=== PATIENT | female | born 1955 | race Caucasian/White ===

== ENCOUNTER → 2023-04-19 | Outpatient (CLI) | payer MEDICARE, BC ==
--- NOTE | 2023-04-22 11:27 | MM ---
EXAM: MG 3D screening mammo w/cad DATE OF EXAM: 04/19/2023 10:36 AM COMPARISON STUDIES: 11/28/2018 Bilateral MG 3D screening mammo w/cad, [facility]. 10/02/2021 Bilateral MG 3D screening mammo w/cad, [facility]. PATIENT HISTORY: Female, 67 years old with history of Z12.31 SCREENING MAMMOGRAM; , Menarche at age 12. First Full-Term at age 19. Postmenopausal. Mother had breast cancer at or over age 50. , RISK CALCULATION: Marizol 5 year model risk: 3.4%. NCI Lifetime model risk: 12.0%. TISSUE DENSITY: Scattered fibroglandular densities FINDINGS: There is no suspicious group of microcalcifications or new suspicious mass in either breast. ASSESSMENT: 1 - Negative RECOMMENDATION: 1. Screening Mammogram Bilateral in 1 Year . COMMENTS: [facility] will attempt to contact patient to return for supplemental views and ultrasound if indicated. Patient should continue monthly self-breast exams. A clinical breast exam by your physician is recommended on an annual basis. This exam should not preclude additional follow-up of suspicious palpable abnormalities. Note on Marizol scores and lifetime risk: 1. A Marizol score greater than 3% is considered moderate risk. If this is the case, consider specialist referral to assess eligibility for a risk reducing agent. 2. If overall lifetime risk for the development of breast cancer is 20% or higher, the patient may qualify for future screening with alternating mammogram and breast MRI. CRUZITO
== END | disposition home or self-care (01) ==
LOC: RADMAMWWP 07:59
PROVIDERS: ATTEND Family Medicine
DX: Z12.31 Encounter for screening mammogram for malignant neoplasm of breast (principal); Z78.0 Asymptomatic menopausal state; Z80.3 Family history of malignant neoplasm of breast
CPT/HCPCS: 77063; 77067

== ENCOUNTER → 2023-04-19 | Outpatient (CLI) | payer MEDICARE, BC ==
--- NOTE | 2023-04-19 12:14 | CTL ---
EXAMINATION TYPE: CT Low Dose Lung DATE OF EXAM ORDERED: 04/19/2023 HISTORY: 67-year-old female with Z87.891, nicotine dependence, current smoker with 50 pack-year histo ry. Lung cancer screening CT DLP: 50.[address] CTDI: 1.4 mGy Automated exposure control for dose reduction was used. SCREENING VISIT: Baseline COMPARISON: Radiograph 03/14/2023 TECHNIQUE: Low dose computed tomography scan was performed through the chest with coronal and sagitta l reconstructions. CT DIAGNOSTIC QUALITY: Satisfactory FINDINGS: The heart is normal size without pericardial effusion. Aorta normal caliber with conventional arch vessel branching anatomy. No thoracic lymphadenopathy by CT size criteria. Multiple moderate emphysematous change. Biapical pleural-parenchymal scarring. Subpleural nodularity measuring 1.5 cm medial right suprahilar region, axial image 97. 3 mm pulmonary nodule anterolateral right midlung, axial image 164. No consolidation or pleural effusion. Visualized upper abdomen shows no gross abnormality. Bones: No osseous destructive process. IMPRESSION: 1. LungRADS Category 4B (very suspicious, >15% chance of malignancy). A 1.5 cm subpleural nodule med ial right suprahilar region on baseline screening. 2. COPD with [id number] emphysema. Recommend smoking cessation. CT LUNG RAD AND CT CHEST RECOMMENDATION: Lung-Rad 4B or 4X Very Suspicious: Follow-up Chest CT with o r without contrast or PET/CT and/or tissue sampling. PET/CT may be used when there is a > 8 mm solid component. S Modifier (other clinically significant findings): None
== END | disposition home or self-care (01) ==
LOC: RADCTMAIN 08:30
PROVIDERS: ATTEND Internal Medicine
DX: Z12.2 Encounter for screening for malignant neoplasm of respiratory organs (principal); J43.9 Emphysema, unspecified; R91.1 Solitary pulmonary nodule; F17.210 Nicotine dependence, cigarettes, uncomplicated
CPT/HCPCS: 71271

== ENCOUNTER → 2023-06-12 | Outpatient (CLI) | payer MEDICARE, BC ==
--- NOTE | 2023-06-13 21:27 | CT ---
EXAMINATION TYPE: CT chest wo con DATE OF EXAM: 06/12/2023 COMPARISON: 04/19/2023 HISTORY: 68-year-old female ION chest. Spot on lung Hx COPD TECHNIQUE: Contiguous axial scanning of the chest without IV contrast. Imaging for ion robot planning purposes. Coronal/sagittal reconstructions performed. CT DLP: 194.20mGycm. Automatic exposure control utilized for a dose reduction. FINDINGS: Heart normal size without pericardial effusion. Aorta normal caliber with conventional arch vessel branching anatomy. Scattered nonenlarged mediastinal lymph nodes. No thoracic lymphadenopathy by CT size criteria. Moderate scattered centrilobular emphysema. Focal subpleural opacity is redemonstrated medial right u pper lobe near the right suprahilar region measuring 1.8 x 1.3 cm versus 1.6 x 1.2 cm on 04/19/2023. E xtends to the medial subsegmental branch of the right upper lobe. No consolidation or pleural effusion. Visualized upper abdomen shows no gross abnormality. Bones: Mild degenerative disc disease midthoracic spine. IMPRESSION: 1. COPD with moderate emphysema. 2. Redemonstrated subpleural medial right upper lobe nodule/opacity near the suprahilar region measur ing 1.8 x 1.3 cm versus 1.6 x 1.2 cm on 04/19/2023. Imaging for robotic bronchoscopy procedure.
== END | disposition home or self-care (01) ==
LOC: RADCTMAIN 11:56
PROVIDERS: ATTEND Internal Medicine
DX: J43.2 Centrilobular emphysema (principal)
CPT/HCPCS: 71250

== ENCOUNTER → 2023-10-07 | Outpatient (CLI) | payer MEDICARE, BC ==
[2023-10-07 11:54] LABS: African American GFR (CKD) 88 (>60 ml/min/1.73 sqM); Blood Urea Nitrogen 16 mg/dL (7-17); Non-African American GFR(CKD) 76 (>60 ml/min/1.73 sqM)
--- NOTE | 2023-10-10 20:05 | CT ---
EXAMINATION TYPE: CT chest w con DATE OF EXAM: 10/07/2023 COMPARISON: 06/12/2023 HISTORY: SOLITARY PULMONARY NODULE. CT DLP: 136.90 mGycm, Automated exposure control for dose reduction was used. CONTRAST: Performed injected with 100ml mL of Isovue 300. TECHNIQUE: Axial images were obtained at 5 mm thick sections. Reconstructed images are reviewed on [employer] computer in the coronal plane. FINDINGS: Portion of the thyroid visualized is normal. There is a stable appearing 1.9 x 1.3 cm density in the posterior medial right apex. Series 4 image 2 1. This was present previously and is stable in size from the most recent comparison of June 12 023. Emphysematous changes are present within the upper lung barton. No enlarged mediastinal or hilar adenopathy is evident. Small pretracheal lymph node is anterior to the marcelo The ascending aorta diameter at the level of the main pulmonary artery is 2.9 cm. The ma in pulmonary artery diameter at the bifurcation is 2.[address] sections are obtained through the upper abdomen. Abdomen is essentially unremarkable. IMPRESSION: 1. Stable appearing pleural-based mass medial right mediastinal border.
== END | disposition home or self-care (01) ==
LOC: RADCTMAIN 11:12
PROVIDERS: ATTEND Internal Medicine
DX: J94.8 Other specified pleural conditions (principal); R91.1 Solitary pulmonary nodule
CPT/HCPCS: 82565; 84520; 71260; 36415; Q9967

== ENCOUNTER → 2024-02-10 | Outpatient (CLI) | payer MEDICARE, BC ==
[2024-02-10 11:03] LABS: African American GFR (CKD) >90 (>60 ml/min/1.73 sqM); Blood Urea Nitrogen 15 mg/dL (7-17); Non-African American GFR(CKD) 78 (>60 ml/min/1.73 sqM)
--- NOTE | 2024-02-10 11:58 | CT ---
EXAMINATION TYPE: CT chest w con DATE OF EXAM: 02/10/2024 COMPARISON: 10/07/2023 HISTORY: lesion on lung CT DLP: 347 mGycm Automated exposure control for dose reduction was used. CONTRAST: CT scan of the chest is performed with IV Contrast, patient injected with 100 mL of Isovue 300. FINDINGS: LUNGS: There is chronic nodular pleural parenchymal density right upper lobe medially smaller than on prior examination measuring 1.3 cm cyst is 1.9 cm maximal dimension. Central air noted. The lungs ar e otherwise clear. Continued follow-up in 6 months advised. MEDIASTINUM: There are no greater than 1 cm hilar or mediastinal lymph nodes. No pericardial effusi on is seen. Thoracic aorta is of normal caliber. The heart is not enlarged. UPPER ABDOMEN: No significant abnormality appreciated. OTHER: No additional significant abnormality is seen. IMPRESSION: There is chronic nodular pleural parenchymal density right upper lobe medially smaller than on prior examination measuring 1.3 cm cyst is 1.9 cm maximal dimension. Central air noted. Six-month follow-up recommended.
== END | disposition home or self-care (01) ==
LOC: RADCTMAIN 10:33
PROVIDERS: ATTEND Internal Medicine
DX: R91.8 Other nonspecific abnormal finding of lung field (principal)
CPT/HCPCS: 82565; 84520; 71260; 36415; Q9967

== ENCOUNTER → 2024-05-01 | Outpatient (CLI) | payer MEDICARE, BC ==
--- NOTE | 2024-05-03 11:39 | MM ---
Reason for Exam: Screening (asymptomatic). Last mammogram was performed 1 year(s) and 1 month(s) ago. Patient History: Menarche at age 12. First Full-Term at age 19. Postmenopausal. Mother had breast cancer at or over age 50. Risk Values: Marizol 5 year model risk: 3.5%. NCI Lifetime model risk: 11.5%. Prior Study Comparison: 11/28/2018 Bilateral MG 3D screening mammo w/cad, [facility]. 10/02/2021 Bilateral MG 3D screening mammo w/cad, [facility]. 04/19/2023 Bilateral MG 3D screening mammo w/cad, [facility]. Tissue Density: There are scattered areas of fibroglandular density. Findings: Analyzed By CAD. Right breast: There is no suspicious group of microcalcifications or new suspicious mass. Left breast: There is no suspicious group of microcalcifications or new suspicious mass. Overall Assessment: Negative, BI-RAD 1 Management: Screening Mammogram of both breasts in [address] [facility] will attempt to contact patient to return for supplemental views and ultrasound if indicated. Patient should continue monthly self-breast exams. A clinical breast exam by your physician is recommended on an annual basis. This exam should not preclude additional follow-up of suspicious palpable abnormalities. Note on Marizol scores and lifetime risk: 1. A Marizol score greater than 3% is considered moderate risk. If this is the case, consider specialist referral to assess eligibility for a risk reducing agent. 2. If overall lifetime risk for the development of breast cancer is 20% or higher, the patient may qualify for future screening with alternating mammogram and breast MRI. Electronically signed and approved by: Kendrick Ortiz DO
== END | disposition home or self-care (01) ==
LOC: RADMAMWWP 13:05
PROVIDERS: ATTEND Family Medicine
DX: Z12.31 Encounter for screening mammogram for malignant neoplasm of breast
CPT/HCPCS: 77063; 77067

== ENCOUNTER → 2024-08-10 | Outpatient (CLI) | payer MEDICARE, BC ==
[2024-08-10 10:42] LABS: African American GFR (CKD) 82 (>60 ml/min/1.73 sqM); Blood Urea Nitrogen 13 mg/dL (7-17); Non-African American GFR(CKD) 71 (>60 ml/min/1.73 sqM)
--- NOTE | 2024-08-10 11:37 | CT ---
EXAMINATION TYPE: CT chest w con CT DLP: 404 mGycm, Automated exposure control for dose reduction was used. DATE OF EXAM: 08/10/2024 11:23 AM COMPARISON: CT chest 02/10/2024, 10/07/2023, 06/12/2023, PET/CT 05/24/2023, CT low-dose lung 04/19/2023 CLINICAL INDICATION:Female, 69 years old with history of R91.1 Solitary pulmonary nodule; PHH, f/u no dule TECHNIQUE: Multiple axial images were obtained through the chest following the administration of 100 cc of Isovue 300. . Coronal reformats reviewed. FINDINGS: LUNGS/ PLEURA: No pleural effusion, pneumothorax, or focal consolidation. Mild centrilobular emphysem atous changes. Similar biapical pleural-parenchymal scarring. Redemonstration of medial right upper l obe pleural-based 1.5 x 1.4 cm nodular opacity (series 4, image 21). There is now no internal cavitat ion identified. Previously measured 1.7 x 1.1 cm. No new suspicious pulmonary nodule or mass. AIRWAY: Patent and unremarkable.. HEART: Size within normal limits.The cardiac perfusion. MEDIASTINUM: No evidence of adenopathy. VASCULATURE: No aortic aneurysm. MUSCULOSKELETAL: No acute osseous abnormalities SOFT TISSUES/LYMPH NODES: Unremarkable. LOWER NECK: No significant findings. UPPER ABDOMEN: Stable peripheral hepatic 9 mm hyperdense lesion likely representing a flash filling h emangioma or vascular shunt. IMPRESSION: 1. Relatively stable size of nodular pleural parenchymal opacity within the medial aspect of the righ t upper lobe measuring up to 1.5 cm. Decrease in internal lucency from prior exam. No new suspicious pulmonary nodules. Follow-up CT chest in 6 months is recommended. 2. Mild COPD changes. [facility], , 08/10/2024 11:34 AM
== END | disposition home or self-care (01) ==
LOC: RADCTMAIN 09:52
PROVIDERS: ATTEND Internal Medicine
DX: J44.9 Chronic obstructive pulmonary disease, unspecified (principal); R91.1 Solitary pulmonary nodule
CPT/HCPCS: 82565; 84520; 71260; 36415; Q9967

== ENCOUNTER → 2025-02-12 | Outpatient (CLI) | payer MEDICARE, BC ==
[2025-02-12 16:25] LABS: African American GFR (CKD) 68 (>60 ml/min/1.73 sqM); Blood Urea Nitrogen 22 mg/dL (7-17); Non-African American GFR(CKD) 59 (>60 ml/min/1.73 sqM)
--- NOTE | 2025-02-12 17:54 | CT ---
EXAMINATION TYPE: CT chest w con DATE OF EXAM: 02/12/2025 4:47 PM COMPARISON: 08/10/2024 CLINICAL INDICATION: Female, 69 years old with history of R91.1 SOLITARY PULMONARY NODULE, Lung nodul e, TECHNIQUE: CT scan of the chest is performed with IV Contrast, patient injected with 80 ml mL of . CT DLP: 125.6 mGycm, Automated exposure control for dose reduction was used. FINDINGS: LUNGS: Pleural nodular density right upper lobe medially seen best on image 17 of 68 currently measur ing 1.9 x 1.0 cm versus 1.5 x 1.4 cm previously. Given slight interval enlargement consider PET/CT to exclude neoplasm. No additional nodules present. MEDIASTINUM: There are no greater than 1 cm hilar or mediastinal lymph nodes. No pericardial effusi on is seen. Thoracic aorta is of normal caliber. HEART: Size within normal limits. No significant coronary artery calcifications. UPPER ABDOMEN: No significant abnormality appreciated. OTHER: No additional significant abnormality is seen. IMPRESSION: Pleural nodular density right upper lobe medially seen best on image 17 of 68 currently measuring 1.9 x 1.0 cm versus 1.5 x 1.4 cm previously. Given slight interval enlargement consider PET/CT to exclud e neoplasm. No additional nodules present. [facility], , 02/12/2025 5:52 PM
== END | disposition home or self-care (01) ==
LOC: RADCTMAIN 15:48
PROVIDERS: ATTEND Internal Medicine
DX: R91.1 Solitary pulmonary nodule (principal); J98.4 Other disorders of lung
CPT/HCPCS: 82565; 84520; 71260; 36415; Q9967